=== PATIENT | male | born 1935 | race Asian ===

== ENCOUNTER 2021-01-10 18:24 | Inpatient (IN) | payer OTHER ==
[2021-01-10] MEDS ORDERED: ONDANSETRON 4 MG/2 ML VIAL IVPUSH ONE (19:42)
[2021-01-10] MEDS ORDERED: FAMOTIDINE 20 MG/50 ML IVPB 20 MG/50 ML MG IVPB ONE ×2 (19:42→19:53)
[2021-01-10] MEDS ORDERED: ACETAMINOPHEN 1000 MG/100 ML VIAL (NON FORMULARY) IVPB ONE (19:42)
[2021-01-10] MEDS ORDERED: LACTATED RINGERS SOLUTION 1000 ML INFUS.BAG IV ONE ×2 (19:42→22:01)
[2021-01-10] MEDS ORDERED: ONDANSETRON 4 MG/2 ML VIAL ONE (19:53)
[2021-01-10 20:06] LABS: BASO % 0.4 % (0-2.0); HEMATOCRIT 35.2 % (35.4-49); HEMOGLOBIN 11.8 GM/dL (11.7-16.9); LYMPH % 2.9 % (8-40); MCH 30.5 pg (25.7-33.7); MCHC 33.6 g/dl (32.0-35.9); MEAN CELL VOLUME 90.8 fl (80-96); MONO % 3.4 % (3.8-10.2); NEUT % 93.3 % (42.8-82.8); PLATELET COUNT 137 K/MM3 (134-434); RBC 3.87 M/mm3 (4.00-5.60); RDW 15.1 % (11.9-15.9); WHITE BLOOD COUNT 17.5 K/mm3 (4.0-10.0)
[2021-01-10 20:12] LABS: INR 1.19 (0.83-1.09); PROTHROMBIN TIME (PATIENT) 14.6 SEC (9.7-13.0)
[2021-01-10 20:15] LABS: ACTIVATED PTT 33.1 SECONDS (25.2-36.5)
[2021-01-10] MEDS ORDERED: ACETAMINOPHEN INJECTION 100 ML IVPB ONE (20:16)
[2021-01-10 20:39] LABS: CHLORIDE 103 mmol/L (98-107); SODIUM 139 mmol/L (136-145)
[2021-01-10 20:53] LABS: ALBUMIN 3.1 g/dl (3.4-5.0); ALK PHOS 106 U/L (45-117); ANION GAP 12 MMOL/L (8-16); BILIRUBIN,TOTAL 0.7 mg/dL (0.2-1); CALCIUM 8.1 mg/dL (8.5-10.1); CO2 23 mmol/L (21-32); GLUCOSE,RANDOM 111 mg/dL (74-106); LIPASE 70 U/L (73-393); SGOT/AST 44 U/L (15-37); SGPT/ALT 18 U/L (13-61); TOT PROT 7.5 g/dl (6.4-8.2)
[2021-01-10 21:05] LABS: ANISOCYTOSIS 0; MACROCYTOSIS 0; PLATELET ESTIMATE DECREASED
[2021-01-10 21:59] LABS: EPI CELLS >36 /uL (0-25.1); HYALINE CASTS 3 /uL (0-3.1); PH,URINE 5.5 (5.0-8.0); URINE APPEARANCE TURBID; URINE BACTERIA >9,000 /uL (0-1359); URINE BILIRUBIN NEGATIVE (NEGATIVE); URINE COLOR YELLOW; URINE GLUCOSE (UA) NEGATIVE (NEGATIVE); URINE KETONE NEGATIVE (NEGATIVE); URINE LEUK ESTERASE 3+ (NEGATIVE); URINE NITRITE NEGATIVE (NEGATIVE); URINE PROTEIN 2+ (NEGATIVE); URINE RBC 100 /uL (0-23.9); URINE UROBILINOGEN 0.2 mg/dL (0.2-1.0); URINE WBC 5210 /uL (0-25.8)
[2021-01-10] MEDS ORDERED: CEFTRIAXONE 1,000 MG in DEXTROSE 5%-WATER - 50 ML IVPB ONE ×2 (22:02→22:03)
[2021-01-10] MEDS ORDERED: SODIUM CHLORIDE 0.9% 500 ML INFUS.BAG IV ONE (22:03)
[2021-01-10] MEDS ORDERED: CEFTRIAXONE 1 GM/50 ML BAG ONE (22:05)
[2021-01-10] MEDS ORDERED: LACTATED RINGERS SOLUTION 1,000 ML/1,000 ML INFUS.BAG IV SCH (22:15)
[2021-01-10 23:22] LABS: CHLORIDE 104 mmol/L (98-107); SODIUM 139 mmol/L (136-145)
[2021-01-10 23:24] LABS: ALBUMIN 2.7 g/dl (3.4-5.0); ANION GAP 9 MMOL/L (8-16); BLOOD UREA NITROGEN 67.1 mg/dL (7-18); CALCIUM 7.7 mg/dL (8.5-10.1); CO2 26 mmol/L (21-32)
[2021-01-10 23:25] LABS: GLUCOSE,RANDOM 118 mg/dL (74-106)
[2021-01-10 23:27] LABS: SGPT/ALT 17 U/L (13-61)
[2021-01-10 23:28] LABS: CREATININE 3.8 mg/dL (0.55-1.3); SGOT/AST 54 U/L (15-37)
[2021-01-10 23:29] LABS: BILIRUBIN,TOTAL 0.6 mg/dL (0.2-1); TOT PROT 6.5 g/dl (6.4-8.2)
[2021-01-10 23:30] LABS: ALK PHOS 83 U/L (45-117)
[2021-01-11 00:03] LABS: YEAST NEGATIVE (NEGATIVE)
[2021-01-11] MEDS ORDERED: ASPIRIN 81 MG CHEWABLE TABLETS PO ONE (00:34)
[2021-01-11] MEDS ORDERED: ASPIRIN 81 MG CHEWABLE TABLETS ONE (01:03)
[2021-01-11] MEDS: NOREPINEPHRINE NS PREMIX 8,000 MCG/500 ML BAG IVPB SCH (02:22)
[2021-01-11] MEDS ORDERED: TICAGRELOR 90 MG TABLET PO ONE (03:51)
[2021-01-11] MEDS ORDERED: HEPARIN NA (PORCINE) 5,000 UNITS/ML 1ML VIAL IVPUSH PRN ×2 (03:55)
[2021-01-11] MEDS ORDERED: HEPARIN INFUSION - 25,000 UNITS/500 ML INFUS.BAG IVPB ONE (03:59)
[2021-01-11] MEDS ORDERED: HEPARIN - 25,000 UNIT in SODIUM CHLORIDE 495 ML IV SCH (04:00)
[2021-01-11] MEDS: ELECTROLYTE-148 SOLN 1,000 ML IV SCH (04:21)
[2021-01-11] MEDS ORDERED: VANCOMYCIN/WATER FOR INJ (PEG) 750 MG/150 ML BAG IVPB SCH ×2 (05:15→05:45)
[2021-01-11] MEDS ORDERED: PIPERACILLIN/TAZOB 2.25 GM 2.25 GM/50 ML BAG IVPB ONE (05:29)
[2021-01-11] MEDS: PIPERACILLIN/TAZOB 2.25 GM 2.25 GM in DEXTROSE 5%-WATER - 50 ML IVPB SCH ×4 (05:35→17:53)
[2021-01-11] MEDS ORDERED: PIPERACILLIN/TAZOB 2.25 GM 2.25 GM in DEXTROSE 5%-WATER - 50 ML IVPB SCH (10:00)
[2021-01-11] MEDS ORDERED: TICAGRELOR 90 MG TABLET PO SCH ×2 (10:00→16:00)
[2021-01-11 10:14] LABS: CHLORIDE 106 mmol/L (98-107); SODIUM 138 mmol/L (136-145)
[2021-01-11 10:17] LABS: ALBUMIN 2.6 g/dl (3.4-5.0); ANION GAP 11 MMOL/L (8-16); BLOOD UREA NITROGEN 65.6 mg/dL (7-18); CO2 22 mmol/L (21-32); GLUCOSE,RANDOM 116 mg/dL (74-106)
[2021-01-11 10:18] LABS: CALCIUM 7.8 mg/dL (8.5-10.1)
[2021-01-11 10:20] LABS: CREATININE 3.3 mg/dL (0.55-1.3); MAGNESIUM 2.4 mg/dL (1.8-2.4); PHOSPHOROUS 4.8 mg/dL (2.5-4.9); SGOT/AST 52 U/L (15-37); SGPT/ALT 17 U/L (13-61)
[2021-01-11 10:21] LABS: BILIRUBIN,TOTAL 0.6 mg/dL (0.2-1)
[2021-01-11 10:22] LABS: TOT PROT 6.5 g/dl (6.4-8.2)
[2021-01-11 10:23] LABS: ALK PHOS 69 U/L (45-117)
[2021-01-11] MEDS ORDERED: PIPERACILLIN/TAZOBACTAM 2.25 GM VIAL IVPB ONE ×2 (10:44→17:38)
[2021-01-11] MEDS ORDERED: PT OWN MED DRAWER 7, Y5N ONE (10:44)
[2021-01-11] MEDS ORDERED: DEXTROSE 5%-WATER - 50 ML IVPB ONE ×2 (10:44→17:38)
[2021-01-11] MEDS: ASPIRIN 81 MG CHEWABLE TABLETS PO SCH (10:53)
[2021-01-11] MEDS: MUPIROCIN 2% TOPICAL OINTMENT FOR DECOLONIZATION NS SCH ×2 (12:25→22:04)
[2021-01-11 16:29] VITALS: BMI 22.0
[2021-01-11] MEDS ORDERED: CHLORHEXIDINE GLUCONATE 4% CLEANSER FOR DECOLONIZATION TP SCH (22:00)
[2021-01-12] MEDS ORDERED: PIPERACILLIN/TAZOBACTAM 2.25 GM VIAL IVPB ONE ×3 (02:46→16:27)
[2021-01-12] MEDS ORDERED: DEXTROSE 5%-WATER - 50 ML IVPB ONE ×3 (02:46→16:27)
[2021-01-12] MEDS: NOREPINEPHRINE NS PREMIX 8,000 MCG/500 ML BAG IVPB SCH (02:54)
[2021-01-12] MEDS: PIPERACILLIN/TAZOB 2.25 GM 2.25 GM in DEXTROSE 5%-WATER - 50 ML IVPB SCH ×3 (02:54→17:05)
[2021-01-12 07:10] LABS: INR 1.12 (0.83-1.09); PROTHROMBIN TIME (PATIENT) 13.5 SEC (9.7-13.0)
[2021-01-12 07:12] LABS: ACTIVATED PTT 32.8 SECONDS (25.2-36.5)
[2021-01-12 07:15] LABS: CALCIUM 7.7 mg/dL (8.5-10.1)
[2021-01-12 07:16] LABS: BLOOD UREA NITROGEN 58.8 mg/dL (7-18); MAGNESIUM 2.6 mg/dL (1.8-2.4)
[2021-01-12 07:17] LABS: BASO % 0.2 % (0-2.0); EOS % 0.6 % (0-4.5); HEMATOCRIT 33.2 % (35.4-49); HEMOGLOBIN 11.1 GM/dL (11.7-16.9); LYMPH % 9.2 % (8-40); MCH 30.4 pg (25.7-33.7); MCHC 33.4 g/dl (32.0-35.9); MEAN CELL VOLUME 90.8 fl (80-96); MEAN PLT VOLUME 9.4 fl (7.5-11.1); MONO % 3.6 % (3.8-10.2); NEUT % 86.4 % (42.8-82.8); PLATELET COUNT 121 K/MM3 (134-434); RBC 3.66 M/mm3 (4.00-5.60); RDW 15.1 % (11.9-15.9); WHITE BLOOD COUNT 17.3 K/mm3 (4.0-10.0)
[2021-01-12 07:19] LABS: CREATININE 1.9 mg/dL (0.55-1.3); PHOSPHOROUS 2.8 mg/dL (2.5-4.9)
[2021-01-12] MEDS ORDERED: POTASSIUM CHLORIDE TABS 20 MEQ TABLET.ER (FP) PO ONE ×3 (08:30→16:15)
[2021-01-12] MEDS: ELECTROLYTE-148 SOLN 1,000 ML IV SCH (09:35)
[2021-01-12] MEDS: ASPIRIN 81 MG CHEWABLE TABLETS PO SCH (09:56)
[2021-01-12] MEDS: MUPIROCIN 2% TOPICAL OINTMENT FOR DECOLONIZATION NS SCH (09:57)
[2021-01-12] MEDS ORDERED: amLODIPine BESYLATE 5 MG TABLET (FP) PO SCH (11:15)
[2021-01-12] MEDS ORDERED: DEXTROSE 50%-WATER - 25 GM/50 ML VIAL IVPUSH ONE (13:57)
[2021-01-12] MEDS ORDERED: DEXTROSE 50%-WATER 25 GM/50 ML DISP.SYRIN ONE (14:41)
[2021-01-12] MEDS ORDERED: DEXTROSE 50%-WATER - 25 GM/50 ML VIAL ONE (14:41)
[2021-01-12 20:46] VITALS: BP 138/68; PULSE 52; TEMP 98.5
== END 2021-01-12 20:40 | disposition short-term general hospital (02) | DRG 871 ==
LOC: JER 18:24 → JERBED 01-11 02:19 → JICU 01-11 08:40 → J4S 01-12 18:34
PROVIDERS: ADMIT Internal Medicine; ATTEND Internal Medicine
PROC: 05HM33Z Insertion of Infusion Device into Right Internal Jugular Vein, Percutaneous Approach (ICD-10-PCS; principal; 2021-01-11)
DX: A41.59 Other Gram-negative sepsis (principal); I21.4 Non-ST elevation (NSTEMI) myocardial infarction; R65.21 Severe sepsis with septic shock; N17.9 Acute kidney failure, unspecified; N13.6 Pyonephrosis; K80.42 Calculus of bile duct with acute cholecystitis without obstruction; I24.8 Other forms of acute ischemic heart disease; E03.9 Hypothyroidism, unspecified; E87.6 Hypokalemia; R00.1 Bradycardia, unspecified; E78.5 Hyperlipidemia, unspecified; D72.829 Elevated white blood cell count, unspecified; D69.6 Thrombocytopenia, unspecified; I10 Essential (primary) hypertension; I95.9 Hypotension, unspecified
CPT/HCPCS: 36415; 71045-TC-FY; 74176-TC; 76705-TC; 80048; 80053; 81003; 82550; 82553; 82570; 82962; 83605; 83690; 83735; 84100; 84132; 84300; 84443; 84484; 85025; 85610; 85730; 86850; 86900; 86901; 87040; 87086; 87186; 93005; 93010; 93306-TC; 99285-25; C9803; J0131; J1644; U0003; U0005